=== PATIENT | male | born 2000 | race Two or more races ===

== ENCOUNTER 2025-02-05 18:58 | Emergency (ER) | payer OTHER, SELFPAY ==
[~2025-02-05] VITALS: Ht 170.2 cm; Wt 66.5 kg
--- NOTE | 2025-02-05 19:54 | DVH ---
EXAM: XY L 2ND FINGER XRAY DATE OF SERVICE: 02/05/2025 07:21 PM ORDERING PHYSICIAN: ELZA PALMER REASON FOR EXAM: left 2nd finger pain TECHNIQUE: 3 views of the 2nd left digit were acquired. COMPARISON: None FINDINGS: No acute fracture or dislocation is seen. No soft tissue abnormality is evident. There are no significant degenerative changes. IMPRESSION: No acute osseous abnormality. End of Report
[2025-02-05] MEDS ORDERED: AMOX875T4 PO (20:33)
--- NOTE | 2025-02-05 20:33 | ED.PDOC ---
History of Present Illness(SKN HPI Comments 24 year old male presents to ER with complaints of wound check. Patient states he's been experiencing swelling/blistering and 1/10 pain to left 2nd finger x 2.5 weeks and presents to ER today for wound check. Notes he f/u with his PCP at onset of symptoms and was prescribed oral antibiotics but never finished them as prescribed. Denies fever, skin drainage, injury, numbness/tingling or any further symptoms/complaints Chief Complaint: Upper Extremity Time Seen by MD: 19:02 Primary Care Provider: UNKNOWN History of Present Illness: Nurses Notes, Medications, Allergies Allergies: Coded Allergies: No Known Drug Allergy (Verified Allergy, Unknown, 02/05/25) Home Meds Active Scripts Amoxicillin & Pot Clavulanate (Amoxicillin/Potassium Cla) 875 Mg Tab, 1 TAB PO BID for 7 Days, #14 TAB 0 Refills Prov:ELZA PALMER 02/05/25 Information Source: Patient Mode of Arrival: Ambulatory Past Medical History PAST MEDICAL HISTORY: Denies Surgical History: Denies all surgeries Family History Family History: Unknown Social History Smoker: Non-Smoker Alcohol: Denies ETOH Use Drugs: Denies Drug Use Lives In: Home Constitutional: denies: chills, diaphoresis, fatigue, fever, malaise, sweats, weakness, others EENTM: denies: blurred vision, double vision, ear bleeding, ear discharge, ear drainage, ear pain, ear ringing, eye pain, eye redness, hearing loss, mouth pain, mouth swelling, nasal discharge, nose bleeding, nose congestion, nose pain, photophobia, tearing, throat pain, throat swelling, voice changes, others Respiratory: denies: cough, hemoptysis, orthopnea, SOB at rest, shortness of breath, SOB with excertion, stridor, wheezing, others Cardiovascular: denies: chest pain, dizzy spells, diaphoresis, Dyspnea on exertion, edema, irregular heart beat, left arm pain, lightheadedness, palpitations, PND, syncope, others Gastrointestinal: denies: abdomen distended, abdominal pain, blood streaked bowels, constipated, diarrhea, dysphagia, difficulty swallowing, hematemesis, melena, nausea, poor appetite, poor fluid intake, rectal bleeding, rectal pain, vomiting, others Genitourinary: denies: burning, dysuria, flank pain, frequency, hematuria, incontinence, penile discharge, penile sore, pain, testicle pain, testicle swelling, urgency, others Neurological: denies: dizziness, fainting, headache, left sided numbness, left sided weakness, numbness, paresthesia, pre-existing deficit, right sided numbness, right sided weakness, seizure, speech problems, tingling, tremors, weakness, others Musculoskeletal: denies: back pain, gout, joint pain, joint swelling, muscle pain, muscle stiffness, neck pain, others Integumetry: reports: others (As stated in HPI) Allergic/Immunocompromised: denies: Difficulty Healing, Frequent Infections, Hives, Itching, others Hematologic/Lymphatic: denies: anemia, blood clots, easy bleeding, easy bruising, swollen glands, others Endocrine: denies: excessive hunger, excessive sweating, excessive thirst, excessive urination, flushing, intolerance to cold, intolerance to heat, unexplained weight gain, unexplained weight loss, others Psychiatric: denies: anxiety, bipolar disorder, depression, hopeless, panic disorder, schizophrenia, sleepless, suicidal, others Physical Exam General Appearance: No Apparent Distress HEENT: PERRL/EOMI Neck: Full Range of Motion, Non-Tender, Normal Respiratory: Chest Non-Tender, Lungs Clear, No Accessory Muscle Use, No Respiratory Distress, Normal Breath Sounds Cardiovascular: No Murmur, No Gallop, Regular Rate/Rhythm Breast Exam: Deferred Gastrointestinal: NOT DONE Genitalia: Deferred Pelvic: Deferred Rectal: Deferred Extremities: Normal capillary refill, Normal range of motion Neurologic: Alert, No Motor Deficits, Normal Affect, Normal Mood, No Sensory Deficits Cerebellar Function: Normal Reflexes: Normal Skin: Dry, Warm, Other (Mild swelling/erythema/TTP and 2 small pustules <.5 cm in size noted palmar distal tuft of left 2nd finger. No further skin changes noted. Patient able to fully move all fingers left hand. Pulses intact) Peripheral Pulses: 2+ Radial (R), 2+ Radial (L), 2+ Brachial (R), 2+ Brachial (L) Lymphatic: No Adenopathy Was a procedure done? Was a procedure done?: No Sedation Sedation?: No Differential Diagnosis (INTG) Differential Diagnosis: Abrasion Differential Diagnosis: Neurovascular Injury Differential Diagnosis: Osteomyelitis, Puncture Wound, Retained Foreign Body X-Ray, Labs, Meds, VS Vital Signs Date Time Temp Pulse Resp B/P (MAP) Pulse Ox O2 Delivery O2 Flow Rate FiO2 02/05/25 20:35 98.0 77 16 108/61 (77) 99 98.0 02/05/25 19:00 98.0 77 16 108/61 99 98.0 PATIENT: TATO REDDYCCT: [id number]: [id number] : 2000 LOC: ER ROOM / BED: / AGE / SEX: 24 / M ADM STATUS: REG ER SERVICE 12 ORDERING PHYSICIAN: ELZA PALMER PROCEDURE(s): LFIN2 - L 2ND FINGER XRAY REASON: left 2nd finger pain ORDER NUMBER(s): [id number], ACCESSION NUMBER(s): [id number] EXAM: XY L 2ND FINGER XRAY DATE OF SERVICE: 02/05/2025 07:21 PM ORDERING PHYSICIAN: ELZA PALMER REASON FOR EXAM: left 2nd finger pain TECHNIQUE: 3 views of the 2nd left digit were acquired. COMPARISON: None FINDINGS: No acute fracture or dislocation is seen. No soft tissue abnormality is evident. There are no significant degenerative changes. IMPRESSION: No acute osseous abnormality. End of Report ATED BY: TEMO GIBSON MD DICTATED DATE/TIME: 02/05/251950 SIGNED BY: TEMO GIBSON MD SIGNED DATE/TIME: 02/05/251950 CC: Left 2nd finger x-ray reviewed Advised on importance of finishing antibiotics as prescribed Advised to follow up with PCP in 1-2 days Patient verbalized understanding and agreeable with current plan of care Advised to return to ER immediately if symptoms worsen Images Reviewed?: Images reviewed and evaluated by me Time of 1ST Reevaluation: 20:12 Reevaluation 1ST: N/A Patient Education/Counseling: Diagnosis, Treatment, Prognosis, Need For Follow Up Family Education/Counseling: No Family Present SEPSIS Sepsis Screen Date sepsis recognized/suspect: Feb 05, 2025 Time Sepsis recognized/suspect: 1902 Recent Procedure: No On Antibiotic Therapy: No Respiratory Rate >20: No Heart Rate >90: No Temp<36 C (96.8 F) or >38.3 C: No SBP <90 or MAP <65 mmHG: No New Acute Mental Status Change: No Is the patient on CPAP, BIPAP,: No Physician Orders L 2nd Finger Xray (02/05/25 19:13) Vital Signs Date Time Temp Pulse Resp B/P (MAP) Pulse Ox O2 Delivery O2 Flow Rate FiO2 02/05/25 20:35 98.0 77 16 108/61 (77) 99 98.0 02/05/25 19:00 98.0 77 16 108/61 99 98.0 Departure 1 Departure Time of Disposition: 20:31 Impression: Primary Impression: Cellulitis of left index finger Disposition: HOME / SELF CARE / HOMELESS Condition: Stable e-Prescriptions Amoxicillin & Pot Clavulanate (Amoxicillin/Potassium Cla) 875 Mg Tab 1 TAB PO BID for 7 Days, #14 TAB 0 Refills Prov: ELZA PALMER 02/05/25 Discharged With: Self Critical Care Note Critical Care Time?: No Stability Stability form required: No Heart Score Heart Score: Heart Score Response (Comments) Value History N/A 0 EKG N/A 0 Age N/A 0 Risk Factors N/A 0 Troponin N/A 0 Total 0 ELZA PALMER Feb 05, 2025 20:33
[2025-02-05 20:35] VITALS: BP 108/61; PULSE 77; RESP 16; TEMP 98; O2SAT 99
== END 2025-02-05 20:40 | disposition home or self-care (01) ==
LOC: ER 18:58
DX: L03.012 Cellulitis of left finger (principal); Z79.899 Other long term (current) drug therapy
CPT/HCPCS: 73140